=== PATIENT | male | born 1950 | race Asian ===

== ENCOUNTER 2017-12-18 16:34 | Observation (INO) | payer OTHER ==
--- NOTE | 2017-12-18 17:00 | EDPHY ---
H & P Stated Complaint: abd pain/vomiting x 2 days Time Seen by Provider: 12/18/17 16:59 HPI/ROS: CHIEF COMPLAINT: Vomiting HISTORY OF PRESENT ILLNESS: The patient is a 67 y/o male with diabetes type II complaining of vomiting for the last few days. He took double his dose of glipizide (for blood sugar of 235) today to attempt to treat this; he took two pills around 08:00 and another two pills around 15:00. He estimates vomiting about 12 times per day for the last three days. He has also had a cough and sore throat. His BGL usually runs between 130-180 and he normally checks it once in the morning. He denies abdominal pain, diarrhea, abnormal bowel movements, constipation, fever, chest pain, dyspnea, urinary symptoms, back pain. REVIEW OF SYSTEMS: A ten point review of systems was performed and is negative with the exception of the items mentioned in the HPI. Past medical history: 1. Diabetes - glipizide 2. Hypertension - furosemide 3. CAD s/p stenting 2006 Past surgical history: Denies Family history: Noncontributory Social history: Lives in [place]. Nonsmoker. No alcohol use. Lives alone. Retired. PCP: [facility] General Appearance: Alert. Vital signs reviewed. blood pressure 177/93. Eyes: Pupils equal and round, no conjunctival injection, no discharge. Anicteric. ENT, Mouth: Mucous membranes are moist, no oropharyngeal erythema or edema. Neck: No lymphadenopathy, supple. Respiratory: Lungs are clear to auscultation; no wheezes, rales, or rhonchi. Cardiovascular: Regular rate and rhythm; no murmur, rub, or gallop. Gastrointestinal: Abdomen is soft, mild RUQ/RLQ/LLQ tenderness, no masses or organomegaly, no guarding. Skin: Warm and dry, no rashes on exposed skin, normal color. Back: Nontender to palpation over the thoracolumbar spine. No CVAT. Extremities: No lower extremity edema, no calf tenderness or swelling. Neurological: Alert and oriented. Moving all four extremities easily and equally. Psychiatric: Normal affect. - Personal History Current Tetanus Diphtheria and Acellular Pertussis (TDAP): Yes - Medical/Surgical History Hx Asthma: No Hx Chronic Respiratory Disease: No Hx Diabetes: Yes Hx Cardiac Disease: Yes Hx Renal Disease: No Hx Cirrhosis: No Hx Alcoholism: No Hx HIV/AIDS: No Hx Splenectomy or Spleen Trauma: No Other PMH: diabetes, htn - Social History Smoking Status: Never smoked Constitutional: Initial Vital Signs Temperature (C) 36.7 C 12/18/17 16:47 Heart Rate 91 12/18/17 16:47 Respiratory Rate 16 12/18/17 16:47 Blood Pressure 177/93 H 12/18/17 16:47 O2 Sat (%) 94 12/18/17 16:47 O2 Delivery Mode Room Air Allergies/Adverse Reactions: No Known Allergies Allergy (Verified 12/18/17 20:06) Home Medications: Medication Instructions Recorded Amitriptyline HCl [Elavil] 50 mg PO HS 12/02/14 Aspirin [Aspirin 81mg (OTC)] 81 mg PO DAILY 12/02/14 Calcium Carbonate [Oyster Shell 500 mg PO DAILY 12/02/14 Calcium] Cholecalciferol Vit D3 [Vitamin D] 1,000 units PO DAILY 12/02/14 Furosemide [Lasix] 20 mg PO DAILY 12/02/14 Lisinopril [Zestril] 2.5 mg PO BID 12/02/14 [place]-3 Fatty Acids [Fish Oil] 2,000 mg PO DAILY 12/02/14 Simvastatin [Zocor 20 mg] 20 mg PO DAILY18 12/02/14 glipiZIDE [Glipizide] 10 mg PO BID 12/02/14 Herbals/Supplements -Info Only 1 ea PO DAILY 12/18/17 Hydrocodone/Acetaminophen [[place]oll[place] 1 - 2 tab PO BID 12/18/17 5/325 (*)] Ibuprofen [Motrin (*)] 200 - 600 mg PO Q6H PRN 12/18/17 Medical Decision Making ED Course/Re-evaluation: This is a 67 y/o male with diabetes who presents with a 3-day history of persistent vomiting and elevated BGL of 235 this morning. He has mild abdominal tenderness on exam. Plan for IV, labs, UA, and symptomatic management. 1L IV NS and 4mg IV Zofran ordered. BGL 197. Creatinine 2.0. BUN 47. Some ketones in urine. No indication of DKA. 1914: Reevaluated patient. He doesn't feel particularly better. He complains of feeling lightheaded. His abdomen is benign on exam. I doubt SBO. I do not suspect appendicitis, pancreatitis, cholecystitis. I've recommended admission, which he agrees to and he would prefer to stay at [facility] since he lives nearby if his insurance allows. 1933: Spoke with [facility] physician line. They are in agreement with admission to our facility. Spoke with hospitalist service. Dr. Shannon accepts admission. - Data Points Laboratory Results: Laboratory Results 12/18/17 17:42 12/18/17 17:42 Medications Given: Amitriptyline HCl (Elavil) 50 mg PO HS JUAN Stop: 06/16/18 23:14 Last Admin: 12/19/17 00:00 Dose: 50 mg Heparin Sodium (Porcine) (Heparin Sc Injection) 5,000 unit SC Q8 JUAN Stop: 06/17/18 05:59 Last Admin: 12/19/17 06:17 Dose: 5,000 unit Sodium Chloride (Ns) 1,000 mls @ 125 mls/hr IV CONT JUAN Stop: 06/16/18 23:14 Last Admin: 12/18/17 23:37 Dose: 1,000 mls Famotidine/Sodium Chloride (Pepcid 20 Mg (Premix)) 50 mls @ 200 mls/hr IV Q12HRS JUAN Stop: 06/16/18 23:14 Last Admin: 12/18/17 23:39 Dose: 50 mls Ondansetron HCl (Zofran) 4 mg IVP Q4 PRN PRN Reason: Nausea/Vomiting, Can't Take PO Stop: 06/16/18 23:06 Last Admin: 12/18/17 23:37 Dose: 4 mg Discontinued Medications Sodium Chloride (Ns) 1,000 mls @ 0 mls/hr IV EDNOW ONE; Wide Open PRN Reason: Protocol Stop: 12/18/17 17:36 Last Admin: 12/18/17 17:44 Dose: 1,000 mls Ondansetron HCl (Zofran) 4 mg IVP EDNOW ONE Stop: 12/18/17 17:36 Last Admin: 12/18/17 17:45 Dose: 4 mg Departure - Departure Disposition: [facility] Acute Clinical Impression: Renal insufficiency Nausea and vomiting Qualifiers: Vomiting type: unspecified Vomiting Intractability: non-intractable Qualified Code(s): R11.2 - Nausea with vomiting, unspecified Condition: Fair Report Scribed for: Mago Cuenca Report Scribed by: Pao Piedra Date of Report: 12/18/17 Time of Report: 17:15 Physician Review and Approval Statement: 12/19/17 07:15 Portions of this chart were entered by a hospital medical biller. I have reviewed the documentation and agree with the chart as written. I personally performed the HPI, PE, MDM.
[2017-12-18] MEDS ORDERED: ONDANSETRON 4 MG/2 ML VIAL IVP ONE (17:35)
[2017-12-18] MEDS ORDERED: NS 1,000 ML IV ONE (17:35)
[2017-12-18] MEDS ORDERED: ONDANSETRON 4 MG/2 ML VIAL ONE (17:36)
[2017-12-18 18:00] LABS: PLATELET COUNT 313 10^3/uL (150-400)
[2017-12-18] MEDS ORDERED: D50W 25 GM/50 ML VIAL IVP PRN (23:05)
[2017-12-18] MEDS ORDERED: ACETAMINOPHEN 650 MG SUPP PR PRN (23:07)
[2017-12-18] MEDS ORDERED: HYDROmorphone HCL/NS 0.5 MG/ML SYR IVP PRN (23:07)
[2017-12-18] MEDS ORDERED: ACETAMINOPHEN 325 MG TAB PO PRN (23:07)
[2017-12-18] MEDS ORDERED: ONDANSETRON 4 MG/2 ML VIAL IVP PRN (23:07)
[2017-12-18] MEDS ORDERED: PROMETHAZINE HCL 25 MG/ML INJ IVP PRN (23:07)
[2017-12-18] MEDS ORDERED: AMITRIPTYLINE HCL 50 MG TAB PO SCH (23:15)
[2017-12-18] MEDS: NS 1,000 ML IV SCH (23:37)
[2017-12-18] MEDS: FAMOTIDINE 20 MG/NACL 50 ML IV SCH (23:39)
--- NOTE | 2017-12-18 23:39 | GHP ---
[f rep st] HISTORY AND PHYSICAL DATE OF ADMISSION: 12/18/2017 CHIEF COMPLAINT: Nausea and vomiting. HISTORY: The patient is a 67-year-old male who has had intractable nausea and vomiting for the last 3 days. He is vomiting greater than 12 times per day. He cannot even keep down water. He has a lit tle epigastric stomach pain. He denies any diarrhea. He feels very dehydrated and gets dizzy with r ising. He took a double dose of glipizide today wondering if his diabetes was poorly controlled and if that may be contributing to his symptoms. PAST MEDICAL HISTORY: 1. Diabetes, type 2. 2. Hypertension. 3. Coronary artery disease, status post stents 2006. MEDICATIONS: Please see computer record for full detailed list. ALLERGIES: No known drug allergies. SOCIAL HISTORY: No smoking. No alcohol. Lives alone. REVIEW OF SYSTEMS: Complete review of systems obtained. Review of systems negative regarding consti tutional, HEENT, GI, pulmonary, cardiovascular, , hematology, skin, muscular, endocrine, and psych except for positives and negatives as in HPI. FAMILY HISTORY: Reviewed, noncontributory to presenting complaint. PHYSICAL EXAMINATION: GENERAL: Well-developed, well-nourished male, no acute distress. He is activ tony vomiting throughout the H and P and looking very uncomfortable. VITAL SIGNS: Temperature 37.5, pulse 84, blood pressure 153/85, satting 93% on room air. HEENT: Eyes: Normal conjunctivae. Pupil s equal and react to light. ENT: Normal ears and nose. Hearing intact. Normal teeth. Oropharynx dry. NECK: Trachea is midline. No thyromegaly. CHEST: Normal effort. LUNGS: Clear to auscultat ion bilaterally. CARDIOVASCULAR: Regular rate and rhythm. No murmur. No extremity edema. ABDOMEN : Soft, nontender. No hepatosplenomegaly. SKIN: Warm, dry, intact. No rash. MUSCULOSKELETAL: N o cyanosis or clubbing. Strength 5/5 upper and lower extremities. NEURO: Cranial nerves intact. N ormal sensation to light touch. PSYCH: Alert and oriented x3. Normal mood and affect. Normal judg ment and insight. Normal memory. LABORATORY DATA: White count 7.72, hematocrit 46.6, platelets 313. Sodium 142, potassium 5.0, chlor rochelle 96, bicarb 31, BUN 47, creatinine 2.0, glucose 197. LFTs are negative. Urinalysis is negative. This case was discussed with Dr. Mago Cuenca. She was concerned with him living alone with his pro fuse vomiting and renal failure so she decided to admit to observation. ASSESSMENT AND PLAN: 1. Intractable nausea and vomiting. This may be a prolonged viral gastroenteritis. However, I will check a 3-way of the abdomen to rule out obstruction. Will continue supportive care with antiemetic s. 2. Acute renal failure secondary to dehydration. Will continue hydration with IV fluids and hold li sinopril, NSAIDs, and Lasix. 3. Diabetes, type 2. Will place on insulin sliding scale. 4. Coronary artery disease, status post previous stents. I will check an EKG and troponin x1 but I think it is highly unlikely this would be an anginal equivalent. CODE STATUS: Full. ADMISSION STATUS: Will admit to observation. Reevaluate tomorrow regarding ongoing hospitalization. DEEP VENOUS THROMBOSIS PROPHYLAXIS: He is moderate risk. Will place him on subcu heparin. /[id number]/MODL
[2017-12-19 05:49] LABS: PLATELET COUNT 234 10^3/uL (150-400)
[2017-12-19] MEDS: HEPARIN 5,000 UNIT/0.5 ML SYR SC SCH ×2 (06:17→15:36)
[2017-12-19] MEDS: INSULIN REGULAR HUMAN 100 UNIT/ML UNIT SC SCH ×2 (07:58→11:27)
[2017-12-19] MEDS: FAMOTIDINE 20 MG/NACL 50 ML IV SCH (08:13)
[2017-12-19] MEDS: NS 1,000 ML IV SCH (08:24)
--- NOTE | 2017-12-19 08:48 | CPEKG ---
Heart Rate: 64 RR Interval: 938 QRSD Interval: 82 QT Interval: 408 QTC Interval: 421 QRS Blaine: 66 T Wave Blaine: 48 EKG Severity - ABNORMAL ECG - EKG Impression: SINUS RHYTHM EKG Impression: PREMATURE ATRIAL CONTRACTIONS Electronically Signed By: Debby Hillman 19-Dec-2017 11:08:04
[2017-12-19] MEDS ORDERED: glipiZIDE 5 MG TAB PO SCH (09:00)
[2017-12-19] MEDS ORDERED: HYDROCODONE/APAP 5/325 TAB PO SCH (09:00)
[2017-12-19] MEDS ORDERED: ATORVASTATIN CALCIUM 10 MG TAB PO SCH (09:00)
[2017-12-19] MEDS ORDERED: ASPIRIN 81 MG CHEWABLE TAB PO SCH (09:00)
[2017-12-19] MEDS ORDERED: MAGNESIUM CITRATE 300 ML BOTTLE PO ONE (11:03)
--- NOTE | 2017-12-19 11:09 | HOSPPROG ---
Hospitalist Progress Note Assessment/Plan: 67 yo M w dm, cad a/w vomiting, constipation, suppressed tsh vomiting: appears to have resolved ACS w/u neg (ekg interp by me) could be gastroparesis- follow benign exam continue clear liquid diet constipation: likely source of vomiting mag citrate follow dm: sliding scale proph: sc heparin AMANDA: improved baseline likely 1.5-1.7 suppressed tsh: await t3, t4 presentation (constipation, flat affect) more s/o hypOthyroidism follow await t3. t4 Subjective: vomiting resolved. acknowledges constipation Objective: Vital Signs Temp Pulse Resp BP Pulse Ox 36.4 C 67 16 135/69 H 90 L 12/19/17 07:36 12/19/17 07:36 12/19/17 07:36 12/19/17 07:36 12/19/17 07:36 Laboratory Results 12/19/17 05:32 12/19/17 05:32 12/18/17 12/19/17 12/20/17 05:59 05:59 05:59 Intake Total 1311 Output Total 425 Balance 886 - Physical Exam Constitutional: no apparent distress, appears nourished Eyes: PERRL, anicteric sclera Ears, Nose, Mouth, Throat: moist mucous membranes, hearing normal Cardiovascular: regular rate and rhythym, no murmur, rub, or gallop Respiratory: no respiratory distress, no rales or rhonchi Gastrointestinal: normoactive bowel sounds, No guarding, No rebound Genitourinary: no bladder fullness, No dumont in urethra Skin: warm, normal color Musculoskeletal: full muscle strength, no muscle tenderness Neurologic: AAOx3 ICD10 Worksheet Patient Problems: Problems Problem Status Onset Nausea and vomiting Acute Renal insufficiency Acute
--- NOTE | 2017-12-19 11:32 | ASMTCASEMG ---
Living Arrangements What is your living Answers: Alone arrangement? Who do you live with? Type Of Residence What kind of residence do Answers: Apartment you live in? Discharge Plan Comments Coordination Status Comments Notes: Pt is a 67 y/o man admitted for vomiting and diabetes II. Therapies have been ordered and awaiting recommendations. Needs are TBD at this time. CM to follow. Plan: TBD Date Signed: 12/19/2017 11:32 AM Electronically Signed By:MARYJO Francisco
[2017-12-19 15:17] VITALS: BP 139/72
--- NOTE | 2017-12-19 16:48 | ASMTCMCOM ---
CM Note CM Note Notes: Pt is being discharged today. Therapies have cleared pt to be independent. No other needs identified at this time. CM available for changes. Plan: Independent Date Signed: 12/19/2017 04:48 PM Electronically Signed By:MARYJO Francisco
--- NOTE | 2017-12-19 17:22 | GDS ---
[f rep st] DISCHARGE SUMMARY DISCHARGE DIAGNOSES: 1. Nausea/vomiting likely attributable to constipation. 2. Diabetes. 3. Suppressed TSH with normal thyroid function tests. 4. History of coronary disease. 5. Acute kidney injury with elevated BUN and creatinine and refractory nausea and vomiting. Please see admission history and physical by Dr. Sofía Shannon. Patient recently had several episod es of vomiting and inability to keep down oral's. He did not have diarrhea; in fact showed constipat ion. The patient's nausea and vomiting resolved overnight. He did not have a bowel movement. He wa s given Mag citrate with no BM. He is off a colon prep but declined. He had a TSH checked for uncle ar reasons which showed a TSH that was undetectable. Thyroid studies including free T4, T4, free T3, and total T3 were all essentially normal other than modestly low total T3. This is consistent with either central hypothyroidism and/or early central hypothyroidism or sick euthyroid. I have recommended followup thyroid studies in 6 weeks. /[id number]/MODL
== END 2017-12-19 17:10 | disposition home or self-care (01) ==
LOC: F3E 21:22
PROVIDERS: ADMIT Internal Medicine; ATTEND Internal Medicine
DX: R11.2 Nausea with vomiting, unspecified (principal); E11.9 Type 2 diabetes mellitus without complications; E07.9 Disorder of thyroid, unspecified; I25.10 Atherosclerotic heart disease of native coronary artery without angina pectoris; N17.9 Acute kidney failure, unspecified; Z95.5 Presence of coronary angioplasty implant and graft; K59.00 Constipation, unspecified
CPT/HCPCS: 74022; 93005; 97161; 97165; G0378; G8987; G8988; J1644; J2405; 84480-90; 84481-90; 96374

== ENCOUNTER 2018-01-05 14:23 | Emergency (ER) | payer OTHER ==
[2018-01-05] MEDS ORDERED: ONDANSETRON 4 MG/2 ML VIAL ONE (14:35)
[2018-01-05] MEDS ORDERED: NS 1,000 ML IV ONE (14:43)
[2018-01-05] MEDS ORDERED: ONDANSETRON 4 MG/2 ML VIAL IVP ONE (14:43)
[2018-01-05] MEDS ORDERED: DIAZEPAM 5 MG/ML 1 ML SYR IVP ONE (14:57)
--- NOTE | 2018-01-05 14:57 | EDPHY ---
H & P Stated Complaint: n/v Time Seen by Provider: 01/05/18 14:41 HPI/ROS: CHIEF COMPLAINT: Nausea, vomiting, and dizziness HISTORY OF PRESENT ILLNESS: This is a 67-year-old with type 2 diabetes for which he takes glimepiride. He also has a history of coronary artery disease. He presents with the acute onset of nausea, vomiting, and dizziness; all of which began yesterday. He has had persistent intermittent vomiting since that time. He feels off balance when he tries to walk. His dizziness is worse with change in body position or head position. He denies earache, headache, numbness , focal weakness, fever, urinary symptoms, abdominal pain, diarrhea, has not had a bowel movement for 3 days (typically moves his bowels every other day). He did take his glimepiride this morning but believes that he might have vomited it up. He was admitted under similar circumstances on December 18 of this year (2 weeks ago) and at that time his symptoms resolved. He was diagnosed with acute renal failure secondary to dehydration and also with constipation. During that time he was noted to have an abnormal TSH with normal thyroid studies otherwise. Follow up in 6 weeks was recommended. Of note, he was seen in November of 2014 with dizziness, nausea, and vomiting. At that time he was noted to have an elevated creatinine. Discussion with his [place] physician revealed that his baseline creatinine was 1.8. He continues to be followed by a [place] physician, Dr. Juan Davis, and saw him within the past week. REVIEW OF SYSTEMS: A ten point review of systems was performed and is negative with the exception of the items mentioned in the HPI. Past medical history: 1. Type 2 diabetes 2. Coronary artery disease status post stenting 3. hypertension Social history: He does not use tobacco products or alcohol. He lives alone. General Appearance: Alert. Vital signs reviewed. Blood pressure 106/86, heart rate 97, respiratory rate 16, oxygen saturation 95% on room air. Temperature 37.1 degrees. Eyes: Pupils equal and round, no conjunctival injection, no discharge. Anicteric. ENT, Mouth: Mucous membranes are moist, no oropharyngeal erythema or edema. Tympanic membranes normal. Neck: No lymphadenopathy, supple. No jugular venous distension. Respiratory: Lungs are clear to auscultation; no wheezes, rales, or rhonchi. Cardiovascular: Regular rate and rhythm; no murmur, rub, or gallop. Gastrointestinal: Abdomen is soft and nontender, no masses or organomegaly, bowel sounds normal. Skin: Warm and dry, no rashes on exposed skin, normal color. Back: Nontender to palpation over the thoracolumbar spine. No CVAT. Extremities: No lower extremity edema, no calf tenderness or swelling. Neurological: Alert and oriented. Moving all four extremities easily and equally. Cranial nerves II through XII are examined and are intact (visual acuity not tested and SCM not tested). No nystagmus. Strength is 5 over 5 bilaterally with testing of all major motor groups. Sensation is intact to light touch over all 4 extremities. Gait not tested. [id number] is performed accurately. Psychiatric: Normal affect. - Personal History Current Tetanus/Diphtheria Vaccine: Unsure Current Tetanus Diphtheria and Acellular Pertussis (TDAP): Unsure - Medical/Surgical History Hx Asthma: No Hx Chronic Respiratory Disease: No Hx Diabetes: Yes Hx Cardiac Disease: Yes Hx Renal Disease: No Hx Cirrhosis: No Hx Alcoholism: No Hx HIV/AIDS: No Hx Splenectomy or Spleen Trauma: No Other PMH: diabetes, htn, neuropathy - Social History Smoking Status: Never smoked Constitutional: Initial Vital Signs Temperature (C) 37.1 C 01/05/18 14:29 Heart Rate 97 01/05/18 14:29 Respiratory Rate 16 01/05/18 14:29 Blood Pressure 106/86 H 01/05/18 14:29 O2 Sat (%) 95 01/05/18 14:29 O2 Delivery Mode Room Air Allergies/Adverse Reactions: No Known Allergies Allergy (Verified 01/05/18 14:27) Home Medications: Medication Instructions Recorded Amitriptyline HCl [Elavil 50 mg 50 mg PO HS 12/02/14 (*)] Aspirin [Aspirin 81mg (*)] 81 mg PO DAILY 12/02/14 Calcium Carbonate [Oyster Shell 500 mg PO DAILY 12/02/14 Calcium] Cholecalciferol Vit D3 [Vitamin D3 1,000 units PO DAILY 12/02/14 (*)] Furosemide [Lasix 20 MG (*)] 20 mg PO DAILY 12/02/14 Lisinopril [Zestril 5 mg (*)] 2.5 mg PO BID 12/02/14 [place]-3 Fatty Acids [Fish Oil 1000 2,000 mg PO DAILY 12/02/14 mg (*)] Simvastatin [Zocor 20 mg] 20 mg PO DAILY18 12/02/14 Herbals/Supplements -Info Only 1 ea PO DAILY 12/18/17 Hydrocodone/Acetaminophen [[place] 1 - 2 tab PO BID 12/18/17 5/325 (*)] Ibuprofen [Motrin (*)] 200 - 600 mg PO Q6H PRN 12/18/17 Glimepiride 01/05/18 Meclizine HCl [Meclizine HCl 25 mg 25 mg PO TID PRN #10 tab 01/05/18 (RX,OTC)] Ondansetron Odt [Zofran Odt 4 mg 4 mg PO Q4 PRN #10 tab 01/05/18 (RX)] Medical Decision Making ED Course/Re-evaluation: 67-year-old with type 2 diabetes who presents with day and half of persistent nausea, vomiting, and dizziness. This description is suggestive of vertigo. He was admitted with same 2 weeks ago. He is being given 1 L IV normal saline, 4 mg IV Zofran, and 2.5 mg IV Valium for treatment of presumed vertigo. Patient was re-evaluated at 3:30 p.m.. He is feeling better after receiving the above. He has not yet tried ambulate. He has had no more vomiting. Creatinine is 1.8, it was 1.7 at the time of his discharge, December 19. Apparently this is his baseline. He has an appointment with his med dir on January 12. He sees his med dir twice yearly. He saw his primary care physician earlier this week. At that time he was doing fine. Patient has been evaluated hourly during his stay in the emergency department. He has been up to the bathroom and is no longer feeling dizzy. Gait is stable, normal. He has had some water to drink and a cracker. At 6:10 p.m. When I evaluate him he complains of continued nausea. He also notes that he had some nasal drainage and sneezing. His lungs are clear. He is not short of breath. Evaluation at 7:00 p.m. Finds him to be feeling better, no dizziness and no nausea. He has not vomited during the 4 and one-half hours he has been in the department. I think this is most likely vertigo. I do not think this is CVA/ brain tumor. He had brain imaging performed about three years ago under similar circumstances. He understands that should his symptoms recur he might need repeat brain imaging. He is comfortable returning home now. He will follow up with his [place] physician. We reviewed the danger signs that should prompt him to be re-evaluated immediately. Differential Diagnosis: Vertigo including but not limited to peripheral causes such as benign positional vertigo, Meniere's disease, viral labyrinthitis and central causes such as CVA, and tumor. - Data Points Laboratory Results: Laboratory Results 01/05/18 14:40 01/05/18 14:40 Medications Given: Discontinued Medications Diazepam (Valium) 2.5 mg IVP EDNOW ONE Stop: 01/05/18 14:58 Last Admin: 01/05/18 15:04 Dose: 2.5 mg Sodium Chloride (Ns) 1,000 mls @ 0 mls/hr IV ONCE ONE PRN Reason: Wide Open Stop: 01/05/18 14:44 Last Admin: 01/05/18 14:44 Dose: 1,000 mls Meclizine HCl (Meclizine Hcl) 25 mg PO ONCE ONE Stop: 01/05/18 15:41 Last Admin: 01/05/18 15:55 Dose: 25 mg Ondansetron HCl (Zofran) 4 mg IVP EDNOW ONE Stop: 01/05/18 14:44 Last Admin: 01/05/18 14:44 Dose: 4 mg Ondansetron HCl (Zofran Odt 4 Mg Prepack#2) 1 btl TAKEHOME EDNOW ONE Stop: 01/05/18 19:05 Last Admin: 01/05/18 19:17 Dose: 1 btl Departure - Departure Disposition: Home, Routine, Self-Care Clinical Impression: Vertigo Condition: Good Instructions: Benign Paroxysmal Positional Vertigo (ED) Additional Instructions: Follow up with Dr. Davis, your primary care doctor. Return if you develop headache, or dizziness, persistent vomiting, difficulty walking, any new or concerning symptoms. The meclizine is a medication for dizziness. If your dizziness returns you can take one of these pills every 8 hr. The Zofran is a medicine for nausea. Let it dissolve under your tongue. You can use 1 every 4 hr as needed. Referrals: [facility] [Outside] - As per Instructions Prescriptions: Meclizine HCl [Meclizine HCl 25 mg (RX,OTC)] 25 mg PO TID PRN #10 tab PRN Reason: vertigo Ondansetron Odt [Zofran Odt 4 mg (RX)] 4 mg PO Q4 PRN #10 tab PRN Reason: nausea
[2018-01-05 15:04] LABS: PLATELET COUNT 384 10^3/uL (150-400)
[2018-01-05] MEDS ORDERED: MECLIZINE HCL 25 MG TAB PO ONE (15:40)
[2018-01-05] MEDS ORDERED: ONDANSETRON 4MG PREPACK#2 BTL TAKEHOME ONE (19:04)
[2018-01-05 19:21] VITALS: BP 126/60
== END 2018-01-05 19:20 | disposition home or self-care (01) ==
DX: R42 Dizziness and giddiness (principal); E11.9 Type 2 diabetes mellitus without complications; I10 Essential (primary) hypertension; I25.10 Atherosclerotic heart disease of native coronary artery without angina pectoris; Z79.82 Long term (current) use of aspirin
CPT/HCPCS: 96361; 96374; 96375; 99284; J2405; J3360